=== PATIENT | male | born 1970 | race Caucasian/White ===

== ENCOUNTER → 2024-06-09 06:26 | Day surgery (SDC) | payer OTHER, SELFPAY | LOC: GI 06:26 | PROVIDERS: ATTENDING PHYSICIAN Internal Medicine Gastroenterology | DX: Z12.11 Encounter for screening for malignant neoplasm of colon (principal); R19.7 Diarrhea, unspecified; K64.0 First degree hemorrhoids; R12 Heartburn; K44.9 Diaphragmatic hernia without obstruction or gangrene; K31.89 Other diseases of stomach and duodenum; D12.3 Benign neoplasm of transverse colon; K63.5 Polyp of colon; K52.89 Other specified noninfective gastroenteritis and colitis | CPT/HCPCS: 45385; 45380; 43239; 88305; 88342 ==

== ENCOUNTER → 2024-12-02 07:27 | Outpatient (REF) | payer OTHER, SELFPAY | LOC: HWRAD 07:27 | PROVIDERS: ATTENDING PHYSICIAN Family Medicine | DX: M25.572 Pain in left ankle and joints of left foot (principal) | CPT/HCPCS: 73610 ==